=== PATIENT | female | born 1965 | race Caucasian/White ===

== ENCOUNTER 2020-03-26 13:18 | Outpatient (CLI) | payer OTHER, SELFPAY ==
--- NOTE | 2020-03-26 13:30 | USCV_ITS ---
Josephine Norris Age: 54 Gender: F : 1965 Exam Date: 03/26/2020 13:37 Ordering Phys: Merna Stock MD Technologist: Asha Godfrey Exam Location: [facility] – [place] Indication: LT LOWER LEG INJURY. LEG IS SWOLLEN AND BRUISED FROM KNEE TO TOES HISTORY: Trauma to Lt lower leg lateral side PROCEDURES: Venous duplex imaging was performed in only the left lower extremity. The following venous structures were evaluated: common femoral vein, profunda vein, proximal portion of the greater saphenous vein, superficial femoral vein, and the popliteal vein. In addition, the posterior tibial and peroneal trunk were evaluated. Serial compression, augmentation maneuvers, and spectral Doppler flow evaluation were performed. FINDINGS: No DVT seen in any vessel examined. There is a 23cm pocket ? hematoma at area of injury Prelim called to Kristina at 1:58 at [facility] office Multiple loculated hypoechoic area in the lateral aspect of the leg at the site of injury CONCLUSIONS No evidence of DVT in the above-mentioned identifiable veins. An elongated loculated hypoechoic area(23 x 6 1.98cm), suggestive of fluid collection/hematoma, on the lateral aspect of the left leg. No similar previous studies available for comparison Dr Nubia Arzola MD [facility] (Electronically Signed) Final Date: 26 Mar 2020 18:53 S
== END 2020-03-26 13:19 | disposition home or self-care (01) ==
LOC: RAD 13:23
PROVIDERS: Visit Provider Family Medicine
DX: M79.89 Other specified soft tissue disorders (principal); M79.662 Pain in left lower leg
CPT/HCPCS: 93971